=== PATIENT | female | born 1955 | race Caucasian/White ===

== ENCOUNTER 2017-05-03 12:48 | Emergency (ER) | payer OTHER ==
[~2017-05-03] VITALS: Ht 165.1 cm; Wt 68.2 kg
[2017-05-03 12:50] VITALS: BP 140/93; PULSE 84; RESP 15; O2SAT 100
--- NOTE | 2017-05-03 13:02 | ED.REPORT ---
HPI-Extremity Problem Lower Date of Service May 03, 2017 ED Provider: Yue Le History of Present Illness: fall at [employer] on concrete floor, today around 1120, water on floor. right leg pain, unable to bear weight. no primary care. 8/10 worse with standing. no primary care. did not hit head Nursing Notes Stated Complaint: RIGHT LEG PAIN Chief Complaint: Extremity Trauma Nursing Notes Reviewed: Yes Allergies: Coded Allergies: codeine (Verified Adverse Reaction, Intermediate, headache, 05/03/17) General Time Seen by MD: 13:01 Chief Complaint Leg injury right Hx Obtained From: Patient Onset Occurred: 1 - 4 hours ago Symptom Duration: Since onset Caused by: Accidental Past Medical History Past Medical History Has a trip planned to [facility] in 4 weeks for 2 weeks duration, 05/03/2017 Reports: Diabetes mellitus, Denies: Asthma Past Surgical History denies Smoking History Former Smoker (quit 27 years ago in 1989) Social History Alcohol Use: 1-3 per week Drug Use: Denies drug use Other Social History: Occupation [employer], 2 [employer] 05/03/2017 Ambulatory Status Independent Review of Systems Basic Review of Systems Eyes: Vision NL, No discharge GI: No abdominal pain, No anorexia, No nausea, No vomiting Psychiatric: Normal thought content Physical Exam Initial Vital Signs Vital Signs (First) Date Time Temp Pulse Resp B/P Pulse Ox O2 Delivery O2 Flow Rate FiO2 05/03/17 12:50 36.9 84 15 140/93 100 Room Air Initial VS: Reviewed, Vital signs normal General/Constitutional: Well-developed, Well-nourished Abdomen / GI: Soft, Non-tender, No guarding, No rebound, No distention Upper Extremities: Vascular intact, Neuro intact, No swelling, No tenderness Psychiatric: Mood/affect normal, Behavior normal, Normal thought content moderate swelling at knee. Pain to palpation at distal tib/fib and right hip area General/Constitutional: Awake, Alert, No acute distress, Well appearing, Well developed, Well hydrated Respiratory / Chest: Atraumatic, Breath sounds NL, Breath sounds = bilat, No respiratory distress Cardiovascular: Heart rate NL, Regular rhythm, Heart sounds NL, No gallop Interpretation & Diagnostics X-Ray Interpretation Xray Interpretation: PROCEDURE: X-RAY PELVIS W/LAT HIP (RT) ([id number]) INDICATIONS: fall TECHNIQUE: AP pelvis with lateral view(s) of the right hip(s). COMPARISON: None. FINDINGS: Bones: No fractures or dislocations. Pelvic ring appears intact. No suspicious bony lesions. Soft tissues: The visualized bowel gas pattern is normal. No suspicious soft tissue calcifications. IMPRESSION: No acute fractures or dislocations. If there is clinical concern for occult fracture then a noncontrast CT or MRI would be recommended for further evaluation. Dictated by: Aleksey Briggs M.D. on 05/03/2017 at 14:23 Approved by: Aleksey Briggs M.D. on 05/03/2017 at 14:24 PROCEDURE: X-RAY RIGHT KNEE, THREE VIEWS ([id number]) INDICATIONS: fall TECHNIQUE: 4 views of the knee were acquired. COMPARISON: None. FINDINGS: Bones: No fractures or dislocations. No suspicious bony lesions. Osteopenia. Minimal tricompartmental degenerative change. Soft tissues: Trace joint effusion. No suspicious soft tissue calcifications. IMPRESSION: No acute fractures or dislocations. Dictated by: Alkesey Briggs M.D. on 05/03/2017 at 14:25 Approved by: Aleksey Briggs M.D. on 05/03/2017 at 14:25 PROCEDURE: X-RAY RIGHT TIBIA/FIBULA, TWO VIEWS ([id number]) INDICATIONS: fall TECHNIQUE: 2 views of the tibia and fibula were acquired. COMPARISON: None. FINDINGS: Bones: No fractures or dislocations. No suspicious bony lesions. Osteopenia. Soft tissues: No suspicious soft tissue calcifications or masses. IMPRESSION: No acute fractures or dislocations. Dictated by: Aleksey Briggs M.D. on 05/03/2017 at 14:24 Approved by: Aleksey Briggs M.D. on 05/03/2017 at 14:25 Re-Eval/Medical Decision Med Decision/Clinical Course 61 year old female presents to the [facility] for evualation of right leg pain after fall at [employer] earlier today. Knee has moderate swelling. X-rays are negative for any bony damage. No sign of compartment syndrome or fracture. Discharge & Departure Impression: Primary Impression: Right knee sprain Encounter type: initial encounter Disposition: Home Patient Instructions: Knee Sprain (ED), Knee Sprain Exercises (GEN), Crutch Instructions (ED) Additional Instructions: The x-ray does not show any sign of bony damage. There is a moderate amount of swelling to the knee. Continue with ice 15 minutes off and 15 minutes on. Use ibuprofen 800 mg 3 times a day for 7 days. Elevate as much as possible. Use the crutches as needed for ambulation. Please call Dr. Saleh for follow up. Hydrocodone 1 at night as needed for severe unrelenting pain. I am sorry you fell. Referrals: Ambrose Brown MD (PCP) Michel Saleh MD EDSupervising Provider for APC: Albino Lopez MD copies to: Ambrose Brown MD; Michel Saleh MD, Sue ARNP May 03, 2017 13:02
--- NOTE | 2017-05-03 14:25 | DRSVH ---
PROCEDURE: X-RAY PELVIS W/LAT HIP (RT) ([id number]) INDICATIONS: fall TECHNIQUE: AP pelvis with lateral view(s) of the right hip(s). COMPARISON: None. FINDINGS: Bones: No fractures or dislocations. Pelvic ring appears intact. No suspicious bony lesions. Soft tissues: The visualized bowel gas pattern is normal. No suspicious soft tissue calcifications. IMPRESSION: No acute fractures or dislocations. If there is clinical concern for occult fracture the n a noncontrast CT or MRI would be recommended for further evaluation. Dictated by: Aleksey Briggs M.D. on 05/03/2017 at 14:23 Approved by: Aleksey Briggs M.D. on 05/03/2017 at 14:24
--- NOTE | 2017-05-03 14:26 | DRSVH ---
PROCEDURE: X-RAY RIGHT TIBIA/FIBULA, TWO VIEWS ([id number]) INDICATIONS: fall TECHNIQUE: 2 views of the tibia and fibula were acquired. COMPARISON: None. FINDINGS: Bones: No fractures or dislocations. No suspicious bony lesions. Osteopenia. Soft tissues: No suspicious soft tissue calcifications or masses. IMPRESSION: No acute fractures or dislocations. Dictated by: Aleksey Briggs M.D. on 05/03/2017 at 14:24 Approved by: Aleksey Briggs M.D. on 05/03/2017 at 14:25
--- NOTE | 2017-05-03 14:27 | DRSVH ---
PROCEDURE: X-RAY RIGHT KNEE, THREE VIEWS ([id number]) INDICATIONS: fall TECHNIQUE: 4 views of the knee were acquired. COMPARISON: None. FINDINGS: Bones: No fractures or dislocations. No suspicious bony lesions. Osteopenia. Minimal tricompartmen munir degenerative change. Soft tissues: Trace joint effusion. No suspicious soft tissue calcifications. IMPRESSION: No acute fractures or dislocations. Dictated by: Aleksey Briggs M.D. on 05/03/2017 at 14:25 Approved by: Aleksey Briggs M.D. on 05/03/2017 at 14:25
[2017-05-03 15:18] VITALS: BP 123/80; PULSE 69; RESP 14; O2SAT 97
== END 2017-05-03 15:21 | disposition home or self-care (01) ==
LOC: SED 12:48
DX: S83.91XA Sprain of unspecified site of right knee, initial encounter (principal); W01.0XXA Fall on same level from slipping, tripping and stumbling without subsequent striking against object, initial encounter; Y93.9 Activity, unspecified; Y92.512 Supermarket, store or market as the place of occurrence of the external cause; Y99.8 Other external cause status; E11.9 Type 2 diabetes mellitus without complications; Z87.891 Personal history of nicotine dependence; Z88.5 Allergy status to narcotic agent